=== PATIENT | female | born 1950 | race Caucasian/White ===

== ENCOUNTER → 2018-05-01 | Outpatient (CLI) | payer BC, MEDICARE ==
--- NOTE | 2018-05-02 12:45 | MM ---
Reason for exam: screening (asymptomatic). Last mammogram was performed 2 years and 1 month ago. History: Patient is postmenopausal. Family history of breast cancer in paternal grandmother. Physical Findings: A clinical breast exam by your physician is recommended on an annual basis and results should be correlated with mammographic findings. MG Screening Mammo w CAD Bilateral CC and MLO view(s) were taken. Prior study comparison: April 11, 2016, bilateral MG screening mammo w CAD. April 14, 2014, bilateral MG screening mammo w CAD. There are scattered fibroglandular densities. Stable calcifications. No significant changes when compared with prior studies. ASSESSMENT: Benign, BI-RAD 2 RECOMMENDATION: Routine screening mammogram of both breasts in 1 year.
== END | disposition home or self-care (01) ==
LOC: RADMAMWWP 10:40
PROVIDERS: ATTEND Family Medicine
DX: Z12.31 Encounter for screening mammogram for malignant neoplasm of breast (principal)
CPT/HCPCS: 77067

== ENCOUNTER → 2019-02-18 | Outpatient (CLI) | payer MEDICARE, BC ==
--- NOTE | 2019-02-19 14:33 | MR ---
EXAMINATION TYPE: MR lumbar spine wo con DATE OF EXAM: 02/18/2019 COMPARISON: None available HISTORY: LBP, BLE radic, DDD TECHNIQUE: Multiplanar, multisequence images of the lumbar spine were acquired. FINDINGS: Multilevel disc desiccation is seen. There is minimal retrolisthesis of L5 on S1. Multiple posterior projecting osteophytes and anterior projecting osteophytes of the lumbar spine are seen. No vertebral body height loss. Emanating from the right kidney there is a T2 hyperintense and T1 hypoin tense probable right renal cyst measuring 2.1 cm. Of the inferior pole there is a similar-appearing 4 .1 cm lesion. Conus medullaris is unremarkable terminating at L1: Cauda equina appears clumped and un dulating. L1-L2: There is a stable bulge and facet arthropathy resulting in moderate to severe bilateral neural foraminal narrowing without spinal canal stenosis. L2-L3: There is severe spinal canal stenosis as a result of a right paracentral disc herniation super imposed upon a broad-based disc bulge with facet arthropathy and ligamentum flavum buckling. This res ults in buckling of the cauda equina and nerve roots. Severe bilateral neural foraminal narrowing is seen. L3-L4: There is severe spinal canal stenosis as result of a right lateral disc herniation, broad-base d disc bulge, facet arthropathy and ligamentum flavum buckling resulting in nerve root buckling of th e cauda equina, moderate to severe left and severe right neural foraminal narrowing. L4-L5: There is severe spinal canal stenosis with buckling of the nerve roots secondary to extensive ligamentum flavum buckling, a broad-based disc bulge, and facet arthropathy. There is also severe alpesh ateral neural foraminal narrowing, left greater than right without nerve root impingement of the exit ing L4 nerve root. L5-S1: There is a broad-based disc bulge and facet arthropathy resulting in severe bilateral neural f oraminal narrowing and mild spinal canal stenosis. IMPRESSION: 1. Multilevel severe spinal canal stenosis worst at L4-L5 resulting in undulation and buckling of the cauda equina at multiple levels. Severe spinal canal stenosis is seen at L2-L3, L3-L4, and L4-L5 as well as mild spinal canal stenosis at L5-S1. Neurosurgery consultation is recommended. 2. Multilevel severe neural foraminal narrowing without nerve root impingement of the exiting L4 nerv e root on the left. 3. Right paracentral disc herniation at L2-L3, right lateral disc herniation at L3-L4, and broad-base d disc bulges at the remainder of the lumbar spine.
== END | disposition home or self-care (01) ==
LOC: RADMRIMAIN 17:58
PROVIDERS: ATTEND Physician Assistant Medical
DX: M48.061 Spinal stenosis, lumbar region without neurogenic claudication (principal); M51.26 Other intervertebral disc displacement, lumbar region
CPT/HCPCS: 72148

== ENCOUNTER → 2020-03-25 | Outpatient (CLI) | payer MEDICARE, BC ==
--- NOTE | 2020-03-29 11:11 | MM ---
Reason for exam: screening (asymptomatic). Last mammogram was performed 1 year and 11 months ago. History: Patient is postmenopausal. Family history of breast cancer in paternal grandmother. Physical Findings: A clinical breast exam by your physician is recommended on an annual basis and results should be correlated with mammographic findings. MG 3D Screening Mammo W/Cad Bilateral CC and MLO view(s) were taken. Prior study comparison: May 01, 2018, bilateral MG screening mammo w CAD. April 11, 2016, bilateral MG screening mammo w CAD. There are scattered fibroglandular densities. Scattered benign punctate and round calcifications, some of which have increased slightly on the right. No significant changes when compared with prior studies. ASSESSMENT: Benign, BI-RAD 2 RECOMMENDATION: Routine screening mammogram of both breasts in 1 year.
== END | disposition home or self-care (01) ==
LOC: RADMAMWWP 15:42
PROVIDERS: ATTEND Family Medicine
DX: Z12.31 Encounter for screening mammogram for malignant neoplasm of breast (principal)
CPT/HCPCS: 77063; 77067

== ENCOUNTER 2020-12-19 16:43 | Emergency (ER) | payer MEDICARE, BC ==
[2020-12-19 17:13] VITALS: RESP 18; TEMP 98.8
--- NOTE | 2020-12-19 17:42 | ED ---
GI Bleed HPI - General Chief complaint: GI Bleed Stated complaint: GI bleed Time Seen by Provider: 12/19/20 17:30 Source: patient Mode of arrival: ambulatory Limitations: no limitations - History of Present Illness Initial comments: 70 year-old female patient presents to the emergency department for evaluation of bloody diarrhea. States that she started having diarrhea yesterday morning. States she then had several episodes of diarrhea containing bright red blood throughout the evening and last night. States she did have some sweats when having diarrhea. She reports lower abdominal pain that is intermittent and wraps around her whole abdomen and lower back. Denies history of GI bleed. Does take a baby aspirin, no other anticoagulants. Denies known fever. Denies any nausea, vomiting, or diarrhea. States yesterday whenever she tried to eat or drink anything she would have a bowel movement. Last colonoscopy was 2013. Has been vaccinated for COVID-19. Patient denies any recent rash, cough, shortness of breath, chest pain, back pain, numbness, tingling, dizziness, weakness, hematuria, dysuria, urinary urgency, urinary frequency, headache, visual changes, or any other complaints. - Related Data Home Medications Medication Instructions Recorded Confirmed Aspirin 81 mg PO DAILY 05/04/14 05/06/14 Levothyroxine Sodium [Synthroid] 112 mcg PO DAILY 05/04/14 05/06/14 Meloxicam 15 mg PO DIRECTED PRN 05/04/14 05/06/14 Pravastatin Sodium [Pravachol] 80 mg PO DAILY 05/04/14 05/06/14 Previous Rx's Medication Instructions Recorded Azithromycin [Zithromax Z-pack (6 0 mg PO DIRECTED #6 tab 12/19/20 tabs)] Allergies Allergy/AdvReac Type Severity Reaction Status Date / Time No Known Allergies Allergy Verified 12/19/20 17:13 Review of Systems ROS Statement: Those systems with pertinent positive or pertinent negative responses have been documented in the HPI. ROS Other: All systems not noted in ROS Statement are negative. Past Medical History Past Medical History: Hyperlipidemia, Thyroid Disorder History of Any Multi-Drug Resistant Organisms: None Reported Past Surgical History: Orthopedic Surgery, Tubal Ligation Additional Past Surgical History / Comment(s): LEFT ANKLE ORIF, WITH SCREWS Additional Past Anesthesia/Blood Transfusion Reaction / Comment(s): STATES "VERY HARD TO WAKE UP" Past Psychological History: Depression Smoking Status: Never smoker Past Alcohol Use History: Occasional Past Drug Use History: Marijuana General Exam Limitations: no limitations General appearance: alert, in no apparent distress, other (This is a well-deve loped, well-nourished adult female patient in no acute distress. Vital signs upon presentation temperature 98.8F, pulse 94, respirations 18, blood pressure 164/93, pulse ox 98% on room air.) ENT exam: Present: normal exam, normal oropharynx, mucous membranes moist Respiratory exam: Present: normal lung sounds bilaterally. Absent: respiratory distress, wheezes, rales, rhonchi, stridor Cardiovascular Exam: Present: regular rate, normal rhythm, normal heart sounds. Absent: systolic murmur, diastolic murmur, rubs, gallop, clicks GI/Abdominal exam: Present: soft, tenderness (suprapubic tenderness. ), normal bowel sounds. Absent: distended, guarding, rebound, rigid Neurological exam: Present: alert, oriented X3, CN II-XII intact Psychiatric exam: Present: normal affect, normal mood Skin exam: Present: warm, dry, intact, normal color. Absent: rash Course Vital Signs 12/19/20 12/19/20 17:10 21:33 Temperature 98.8 F Pulse Rate 94 82 Respiratory 18 18 Rate Blood Pressure 164/93 142/80 O2 Sat by Pulse 98 98 Oximetry Medical Decision Making - Medical Decision Making 70-year-old female patient presents to emergency department today for evaluation of diarrhea and ricardo rectal bleeding that started yesterday. States that symptoms did improve today. Physical exam did reveal suprapubic tenderness. She is afebrile with normal vital signs. Reviewed and revealed normal hemoglobin. Elevated white blood cell count. CT abdomen and pelvis was obtained and did show evidence of descending colitis. I did discuss findings and results with her. She'll be started on a azithromycin. She'll be discharged to follow-up with her primary care physician for recheck in 1-2 days. Return parameters were discussed in detail. She verbalizes understanding and agrees with this plan. Case discussed with my attending Dr. Weber. - Lab Data Result diagrams: 12/19/20 18:20 12/19/20 18:20 Lab Results 12/19/20 12/19/20 12/19/20 Range/Units 18:15 18:20 18:20 WBC 13.7 H (3.8-10.6) k/uL RBC 5.35 (3.80-5.40) m/uL Hgb 14.9 (11.4-16.0) gm/dL Hct 45.0 (34.0-46.0) % MCV 84.1 (80.0-100.0) fL MCH 27.8 (25.0-35.0) pg MCHC 33.1 (31.0-37.0) g/dL RDW 13.5 (11.5-15.5) % Plt Count 336 (150-450) k/uL MPV 6.9 Neutrophils % 74 % Lymphocytes % 19 % Monocytes % 4 % Eosinophils % 2 % Basophils % 1 % Neutrophils # 10.1 H (1.3-7.7) k/uL Lymphocytes # 2.6 (1.0-4.8) k/uL Monocytes # 0.6 (0-1.0) k/uL Eosinophils # 0.3 (0-0.7) k/uL Basophils # 0.1 (0-0.2) k/uL PT 10.3 (9.0-12.0) sec INR 1.0 (<1.2) APTT 22.1 (22.0-30.0) sec Sodium (137-145) mmol/L Potassium (3.5-5.1) mmol/L Chloride (98-107) mmol/L Carbon Dioxide (22-30) mmol/L Anion Gap mmol/L BUN (7-17) mg/dL Creatinine (0.52-1.04) mg/dL Est GFR (CKD-EPI)AfAm (>60 ml/min/1.73 sqM) Est GFR (CKD-EPI)NonAf (>60 ml/min/1.73 sqM) Glucose (74-99) mg/dL Calcium (8.4-10.2) mg/dL Total Bilirubin (0.2-1.3) mg/dL AST (14-36) U/L ALT (4-34) U/L Alkaline Phosphatase (38-126) U/L Troponin I (0.000-0.034) ng/mL Total Protein (6.3-8.2) g/dL Albumin (3.5-5.0) g/dL Lipase (23-300) U/L Blood Type Blood Type Confirm O Positive Blood Type Recheck Bld Type Recheck Status Antibody Screen Spec Expiration Date 12/19/20 12/19/20 12/19/20 Range/Units 18:20 18:20 18:30 WBC (3.8-10.6) k/uL RBC (3.80-5.40) m/uL Hgb (11.4-16.0) gm/dL Hct (34.0-46.0) % MCV (80.0-100.0) fL MCH (25.0-35.0) pg MCHC (31.0-37.0) g/dL RDW (11.5-15.5) % Plt Count (150-450) k/uL MPV Neutrophils % % Lymphocytes % % Monocytes % % Eosinophils % % Basophils % % Neutrophils # (1.3-7.7) k/uL Lymphocytes # (1.0-4.8) k/uL Monocytes # (0-1.0) k/uL Eosinophils # (0-0.7) k/uL Basophils # (0-0.2) k/uL PT (9.0-12.0) sec INR (<1.2) APTT (22.0-30.0) sec Sodium 138 (137-145) mmol/L Potassium 4.0 (3.5-5.1) mmol/L Chloride 105 (98-107) mmol/L Carbon Dioxide 26 (22-30) mmol/L Anion Gap 7 mmol/L BUN 14 (7-17) mg/dL Creatinine 0.78 (0.52-1.04) mg/dL Est GFR (CKD-EPI)AfAm >90 (>60 ml/min/1.73 sqM) Est GFR (CKD-EPI)NonAf 79 (>60 ml/min/1.73 sqM) Glucose 102 H (74-99) mg/dL Calcium 10.0 (8.4-10.2) mg/dL Total Bilirubin 0.4 (0.2-1.3) mg/dL AST 33 (14-36) U/L ALT 32 (4-34) U/L Alkaline Phosphatase 103 (38-126) U/L Troponin I <0.012 (0.000-0.034) ng/mL Total Protein 7.0 (6.3-8.2) g/dL Albumin 4.5 (3.5-5.0) g/dL Lipase 97 (23-300) U/L Blood Type O Positive Blood Type Confirm Blood Type Recheck No Previous Record Bld Type Recheck Status CABO Indicated Antibody Screen NEGATIVE Spec Expiration Date 12/22/2020 - 2329 - Radiology Data Radiology results: report reviewed, image reviewed CT abdomen and pelvis is obtained. Report was reviewed in entirety. Impression by Dr. [place] shows diffuse colonic wall thickening to the descending colon into the proximal sigmoid colon compatible with colitis. Renal cysts. Disposition Clinical Impression: Colitis Disposition: HOME SELF-CARE Condition: Good Instructions (If sedation given, give patient instructions): Gastrointestinal Bleeding (ED), Colitis (ED) Additional Instructions: Complete antibiotic prescription in full. Start clear liquid diet and advance as tolerated. Return immediately if your pain worsens, you develop more bleeding, or for any other new/concerning sign or symptom. Prescriptions: Azithromycin [Zithromax Z-pack (6 tabs)] 0 mg PO DIRECTED #6 tab Is patient prescribed a controlled substance at d/c from ED?: No Referrals: Dione Ferro DO [Primary Care Provider] - 1-2 days Time of Disposition: 21:07
[2020-12-19 18:40] LABS: Basophils # (A) 0.1 k/uL (0-0.2); Basophils % (A) 1 %; Eosinophils # (A) 0.3 k/uL (0-0.7); Eosinophils % (A) 2 %; HGB 14.9 gm/dL (11.4-16.0); Lymphocytes # (A) 2.6 k/uL (1.0-4.8); Lymphocytes % (A) 19 %; MCH 27.8 pg (25.0-35.0); MCHC 33.1 g/dL (31.0-37.0); MCV 84.1 fL (80.0-100.0); Mean Platelet Volume 6.9; Monocytes # (A) 0.6 k/uL (0-1.0); Monocytes % (A) 4 %; Neutrophils # (A) 10.1 k/uL (1.3-7.7); Neutrophils % (A) 74 %; Platelet Count 336 k/uL (150-450); RBC 5.35 m/uL (3.80-5.40); RDW 13.5 % (11.5-15.5); WBC 13.7 k/uL (3.8-10.6)
[2020-12-19 18:49] LABS: Partial Thromboplastin Time 22.1 sec (22.0-30.0); Prothrombin Time 10.3 sec (9.0-12.0)
[2020-12-19 18:51] LABS: ALT 32 U/L (4-34); AST 33 U/L (14-36); African American GFR (CKD) >90 (>60 ml/min/1.73 sqM); Albumin 4.5 g/dL (3.5-5.0); Alkaline Phosphatase 103 U/L (38-126); Anion Gap 7 mmol/L; Blood Urea Nitrogen 14 mg/dL (7-17); Carbon Dioxide 26 mmol/L (22-30); Chloride 105 mmol/L (98-107); Glucose 102 mg/dL (74-99); Lipase 97 U/L (23-300); Non-African American GFR(CKD) 79 (>60 ml/min/1.73 sqM); Sodium 138 mmol/L (137-145); Total Bilirubin 0.4 mg/dL (0.2-1.3)
--- NOTE | 2020-12-19 20:20 | CT ---
EXAMINATION TYPE: CT abdomen pelvis w con DATE OF EXAM: 12/19/2020 COMPARISON: None INDICATION: abdominal pain, diarrhea, blood in stool DLP: 1109.3 mGycm, Automated exposure control for dose reduction was used. CONTRAST: 100 mL of Isovue 300. Study performed without Oral Contrast TECHNIQUE: Axial images were obtained from above the diaphragm to the pubic rami in the axial plane a t 5 mm thick sections. Reconstructed images are reviewed on the computer in the coronal plane. FINDINGS: Limited CT sections are obtained the lung bases. There is some compressive atelectasis within the de pendent portions of the lung bases.. CT ABDOMEN: Liver: There is diminished density without discrete masses or cysts within the liver. Correlate for s ome fatty infiltration. Spleen: Normal Pancreas: Normal Adrenal glands: The adrenal glands are normal. Gallbladder: Gallstones are evident. Kidneys: No masses are evident. No hydronephrosis is present. There is a 2.5 cm cyst in the medial upper pole right kidney measuring 13 Hounsfield units there is an anterior inferior cyst measuring 4. 4 cm and 10 Hounsfield units on the right kidney Delayed images were obtained through the kidneys, w hich remain unremarkable. Aorta: Vascular calcification is within the aorta. Inferior vena cava: Normal. CT PELVIS: There is thickening of the descending colon from the splenic flexure into the proximal sigmoid colon. Inflammatory changes are adjacent. Correlate for acute colitis. No suspicious diverticuli are identi fied. There are loops of bowel lacking oral contrast limiting their evaluation. Oral contrast and the ascending colon region Appendix: Normal as visualized. Urinary bladder: Normal. Genitourinary structures: Uterus and ovaries appear normal. Osseous structures: No suspicious lytic or sclerotic lesions. IMPRESSIONS: 1. Diffuse colonic wall thickening through the descending colon into the proximal sigmoid colon comp atible with colitis. 2. Renal cysts
[2020-12-19] MEDS ORDERED: AZITHROMYCIN 500 MG TAB PO STA (21:02)
[2020-12-19 21:35] VITALS: BP 142/80; PULSE 82
== END 2020-12-19 21:22 | disposition home or self-care (01) ==
LOC: EC 16:43
DX: K52.9 Noninfective gastroenteritis and colitis, unspecified (principal); E78.5 Hyperlipidemia, unspecified; F32.9 Major depressive disorder, single episode, unspecified; F12.90 Cannabis use, unspecified, uncomplicated; Z79.82 Long term (current) use of aspirin
CPT/HCPCS: 36415; 86900; 86901; 80053; 83690; 84484; 85025; 85610; 85730; 86850; 74177; 99285; Q9967

== ENCOUNTER 2021-02-16 10:21 | Day surgery (SDC) | payer MEDICARE, BC ==
[2021-02-14 08:53] VITALS: BMI 29.6
[~2021-02-16 10:21] MED LIST: LACTATED RINGERS 1,000 ML IV SCH
[2021-02-16 10:42] VITALS: TEMP 97.8
[2021-02-16] MEDS ORDERED: LACTATED RINGERS 1,000 ML IV ONE (10:42)
[2021-02-16] MEDS ORDERED: LIDOCAINE 1% (10MG/ML) FOR IV START INTRADERMA ONE (10:48)
[2021-02-16] MEDS ORDERED: PROPOFOL 10 MG/ML 20 ML VIAL IV ONE (11:41)
[2021-02-16] MEDS ORDERED: LIDOCAINE 1% INJ 10MG/ML (20 ML MDV) ONE (11:41)
[2021-02-16 12:16] VITALS: RESP 16
--- NOTE | 2021-02-16 12:27 | P.PCN ---
Date of Procedure: 02/16/21 Description of Procedure: BRIEF HISTORY: Patient is a 70-year-old female presenting for outpatient colonoscopy for hemorrhage of the anus and rectum. Previously she had developed symptoms of diarrhea and rectal bleeding was seen in the ER where there was evidence of diffuse colonic wall thickening through the descending and proximal sigmoid. Symptoms of results of that time. Last colonoscopy 2013. PROCEDURE PERFORMED: Colonoscopy with polypectomy . PREOPERATIVE DIAGNOSIS: Hemorrhage of the anus and rectum, last colonoscopy 2013. ESTIMATED BLOOD LOSS: Minimal. IV sedation per Anesthesia. PROCEDURE: After informed consent was obtained, the patient, was brought into the endoscopy unit. IV sedation was administered by Anesthesia under continuous monitoring. Digital rectal examination was normal. Initially the Olympus CF-190 flexible video colonoscope was then inserted in the rectum, gradually advanced into the cecum without any difficulty. Careful examination was performed as the scope was gradually being withdrawn. Ileocecal valve and the appendiceal orifice were visualized and appeared normal. Prep was excellent. Mucosa of the cecum, ascending colon, transverse colon, descending colon, sigmoid colon, and rectum appeared normal, Except for diminutive polyps measuring 1 and 2 mm in size removed from the cecum and sigmoid colon with cold forceps polypectomy . Retroflexion was performed in the rectum and no lesions were seen. The patient tolerated the procedure well. IMPRESSION: 2 diminutive polyps removed with cold forcep polypectomy from the sigmoid and cecum. Otherwise, normal-appearing colon from rectum to cecum with no evidence of colitis in the descending colon and sigmoid. RECOMMENDATIONS: Findings of this examination were discussed with the patient and his family. Okay to resume diet. Okay to resume medications. Await pathology from poly pectomies. Recommend repeat colonoscopy in 7 years pending pathology from polypectomy.
[2021-02-16 12:32] VITALS: BP 122/72; PULSE 64
== END 2021-02-16 12:55 | disposition home or self-care (01) ==
LOC: ORWHC2ENDO 10:21
PROVIDERS: ATTEND Internal Medicine
DX: D12.0 Benign neoplasm of cecum (principal); D12.5 Benign neoplasm of sigmoid colon; K62.5 Hemorrhage of anus and rectum
CPT/HCPCS: 45380; 88305; J2001; J2704

== ENCOUNTER → 2022-12-13 | Outpatient (CLI) | payer BC, MEDICARE ==
--- NOTE | 2022-12-14 18:01 | MM ---
Reason for Exam: Screening (asymptomatic). Last mammogram was performed 2 year(s) and 9 month(s) ago. Patient History: Menarche at age 14. First Full-Term at age 21. Postmenopausal. Paternal grandmother had breast cancer. Risk Values: Alice 5 year model risk: 1.2%. NCI Lifetime model risk: 3.7%. Prior Study Comparison: 04/11/2016 Bilateral Screening Mammogram, [facility]. 05/01/2018 Bilateral Screening Mammogram, [facility]. 03/25/2020 Bilateral Screening Mammogram, [facility]. Tissue Density: There are scattered fibroglandular densities. Findings: Analyzed By CAD. There is no suspicious group of microcalcifications or new suspicious mass in either breast. Overall Assessment: Negative, BI-RAD 1 Management: Screening Mammogram of both breasts in 1 year. . Patient should continue monthly self-breast exams. A clinical breast exam by your physician is recommended on an annual basis. This exam should not preclude additional follow-up of suspicious palpable abnormalities. Note on Alice scores and lifetime risk: 1. A Alice score greater than 3% is considered moderate risk. If this is the case, consider specialist referral to assess eligibility for a risk reducing agent. 2. If overall lifetime risk for the development of breast cancer is 20% or higher, the patient may qualify for future screening with alternating mammogram and breast MRI. Electronically signed and approved by: Berta Benedict M.D. Radiologist
== END | disposition home or self-care (01) ==
LOC: RADMAMWWP 10:39
PROVIDERS: ATTEND Family Medicine
DX: Z12.31 Encounter for screening mammogram for malignant neoplasm of breast (principal); Z80.3 Family history of malignant neoplasm of breast; Z78.0 Asymptomatic menopausal state
CPT/HCPCS: 77063; 77067